=== PATIENT | female | born 1955 | race Caucasian/White ===

== ENCOUNTER → 2025-02-01 | Outpatient (CLI) | payer MEDICARE, SELFPAY ==
--- NOTE | 2025-02-01 09:51 | ECHOD_ITS ---
Reason For Study Reason For Study: CORONARY ARTERY DISEASE Procedure This was a 2D Doppler, Color Flow transthoracic echocardiogram. Myocardial strain analysis was performed in this exam to aid in the assessment of cardiac function. The study was technically difficult. Exam performed in department. Left Ventricle Normal LV size. Mild concentric left ventricular hypertrophy. Septal motion consistent with paced rhythm. Borderline LV systolic function. Estimated LVEF 45%. Global longitudinal strain is -16.2% which is abnormal. Stage I diastolic dysfunction. Right Ventricle ICD or pacer leads identified within the right ventricle. Atria The left atrium is severely enlarged. ICD or pacer leads identified within the right atrium. Mitral Valve Mild (1+) mitral valve insufficiency. Tricuspid Valve Mild tricuspid valve insufficiency. Normal pulmonary artery pressure. Aortic Valve Aortic valve sclerosis without stenosis. Trivial to mild aortic valve regurgitation. Pulmonic Valve Trivial pulmonic valve insufficiency. Great Vessels Calcified aortic throat. Pericardium/Pleural No pericardial effusion. MMode/2D Measurements & Calculations LVIDd: 4.1 cm IVSd: 1.4 cm LVOT diam: 2.0 cm LVIDs: 2.1 cm LVPWd: 1.0 cm LVOT area: 3.1 cm2 RVDd: 3.0 cm FS: 49.8 % asc Aorta Diam: 3.4 cm LAV(MOD-bp): 34.6 ml LVAd ap4: 15.1 cm2 LAV(MOD-bp) Indexed: 18.2 ml/m2 LVLd ap4: 6.3 cm LAV(MOD-sp2): 34.8 ml EDV(MOD-sp4): 30.2 ml LAV(MOD-sp4): 32.4 ml EDV(sp4-el): 30.8 ml LVAs ap4: 8.6 cm2 LVLs ap4: 5.1 cm ESV(MOD-sp4): 12.1 ml ESV(sp4-el): 12.3 ml EF(MOD-sp4): 60.1 % EF(sp4-el): 60.1 % LVAd ap2: 21.2 cm2 SV(MOD-sp4): 18.2 ml SV(MOD-sp2): 26.9 ml LVLd ap2: 7.4 cm SI(MOD-sp4): 9.6 ml/m2 SI(MOD-sp2): 14.2 ml/m2 EDV(MOD-sp2): 48.3 ml EDV(sp2-el): 51.2 ml LVAs ap2: 12.9 cm2 LVLs ap2: 6.5 cm ESV(MOD-sp2): 21.4 ml ESV(sp2-el): 21.7 ml EF(MOD-sp2): 55.7 % SV(sp4-el): 18.5 ml Ao sinus diam: 2.[address] Junction: 2.1 cm LA dimension(2D): 4.7 cm LA A4 area: 14.1 cm2 RA A4 area: 10.6 cm2 TAPSE: 1.2 cm Time Measurements MV dec time: 0.41 sec Doppler Measurements & Calculations MV E max art: 71.6 cm/sec Lat Peak E' Art: 8.5 cm/sec Med Peak E' Art: 4.4 cm/sec MV A max art: 117.9 cm/sec E/E' lat: 8.5 E/E' med: 16.2 MV E/A: 0.61 MV dec slope: 176.8 cm/sec2 Ao V2 max: 188.9 cm/sec AI max art: 393.3 cm/sec Ao max P.3 mmHg AI max P.9 mmHg Ao V2 mean: 134.9 cm/sec AI dec slope: 164.6 cm/sec2 Ao mean P.0 mmHg AI P1/2t: 699.8 msec Ao V2 VTI: 41.4 cm AV (velocity ratio): 0.61 SILVESTRE(I,D): 1.9 cm2 SILVESTRE(V,D): 1.8 cm2 LV V1 max: 111.1 cm/sec SV(LVOT): 79.3 ml PA V2 max: 101.6 cm/sec LV V1 max P.9 mmHg LV V1 mean P.9 mmHg LV V1 mean: 80.9 cm/sec LV V1 VTI: 25.4 cm TR max art: 202.4 cm/sec TR max P.4 mmHg ECHO/Echo Complete Interpretation Summary Mild concentric left ventricular hypertrophy. Septal motion consistent with paced rhythm. Borderline LV systolic function. Es timated LVEF 45%. Global longitudinal strain is -16.2% which is abnormal. Stage I diastolic dysfunction. The left atrium is severely enlarged. Mild (1+) mitral valve insufficiency. Mild tricuspid valve insufficiency. Aortic valve sclerosis without stenosis. Trivial to mild aortic valve regurgita tion. Calcified aortic throat. Ordering Physician: Derrell Dixon Referring Physician: Derrell Dixon Performed By: Malia Magallanes RDCS
== END | disposition home or self-care (01) ==
PROVIDERS: Referring Provider Nurse Practitioner Family; Visit Provider Nurse Practitioner Family
DX: I25.10 Atherosclerotic heart disease of native coronary artery without angina pectoris (principal); I31.39 Other pericardial effusion (noninflammatory); Z95.0 Presence of cardiac pacemaker
CPT/HCPCS: 93306

== ENCOUNTER → 2025-03-03 | Outpatient (CLI) | payer MEDICARE, SELFPAY ==
[2025-03-03 10:49] LABS: Anion Gap 11 (5-15); BUN 34 mg/dL (4-19); BUN/Creat Ratio 26.9 RATIO (10-20); Calcium,Total 10.0 mg/dL (7.6-11.0); Carbon Dioxide 24.9 mmol/L (21.0-32.0); Chloride 97 mmol/L (98-108); Glucose 260 mg/dL (70-99); Magnesium 2.1 mg/dL (1.5-2.2); Potassium 5.4 mmol/L (3.3-5.1)
== END | disposition home or self-care (01) ==
LOC: LAB 09:18
PROVIDERS: Referring Provider Student in an Organized Health Care Education/Training Program; Visit Provider Student in an Organized Health Care Education/Training Program
DX: R25.2 Cramp and spasm (principal); I50.9 Heart failure, unspecified; I47.29 Other ventricular tachycardia
CPT/HCPCS: 36415; 80048; 83735